=== PATIENT | female | born 1945 | race Caucasian/White ===

== ENCOUNTER → 2018-06-30 | Outpatient (CLI) | payer BC, MEDICARE | LOC: MC.RAD 10:49 | DX: Z12.31 Encounter for screening mammogram for malignant neoplasm of breast (principal) ==

== ENCOUNTER → 2020-08-10 | Outpatient (CLI) | payer MEDICARE, BC | LOC: MC.RAD 13:45 | DX: Z12.31 Encounter for screening mammogram for malignant neoplasm of breast (principal); N64.89 Other specified disorders of breast ==

== ENCOUNTER → 2020-08-17 | Outpatient (CLI) | payer MEDICARE, BC | LOC: MC.RAD 13:00 | DX: R92.1 Mammographic calcification found on diagnostic imaging of breast (principal); N64.89 Other specified disorders of breast ==

== ENCOUNTER 2021-09-26 07:55 | Day surgery (SDC) | payer MEDICARE, BC ==
[~2021-09-26] VITALS: Ht 160 cm; Wt 114.9 kg
[2021-09-26] MEDS ORDERED: COZAAR 50MG50 MG/TAB PO (08:18)
[2021-09-26] MEDS ORDERED: MEVACOR10 MG PO (08:18)
[2021-09-26] MEDS ORDERED: ZOLOFT 25MG25 MG PO (08:19)
[2021-09-26] MEDS ORDERED: WOMEN'S DAILY1 TAB PO (08:19)
[2021-09-26 08:29] VITALS: BP 146/74; PULSE 76; TEMP 97.4
[2021-09-26 09:55] VITALS: BP 99/61; PULSE 70; TEMP 97.7
--- NOTE | 2021-09-26 09:55 | NUR ---
PATIENT TRANSPORTED PER CART FROM GI SUITE TO BAY 2 ACCOMPANIED BY ENDO RN. PATIENT AMBULTED FROM CART TO CHAIR WITH 2 ASSIST AND STEADY GAIT. MONITORS APPLIED. VSS ON ROOM AIR. WARM BLANKETS PROVIDED. IN ROOM AND PATIENT SPEAKS WITH . VERBAL REPORT RECEIVED.
[2021-09-26 10:00] VITALS: BP 99/55; PULSE 67
--- NOTE | 2021-09-26 10:00 | NUR ---
VSS ON ROOM AIR. PATIENT TALKING WITH PATIENT GIVEN MUFFIN AND COFFEE. DR LEDBETTER SPEAKS WITH PATIENT AND .
[2021-09-26 10:15] VITALS: BP 116/80; PULSE 71
--- NOTE | 2021-09-26 10:15 | NUR ---
VSS ON ROOM AIR. PATIENT EATS MUFFIN AND DRINKS COFFEE. DENIES NAUSEA AND DISCOMFORT. PATIENT STATES SHE IS WAKING UP.
[2021-09-26 10:30] VITALS: BP 120/54; PULSE 70
--- NOTE | 2021-09-26 10:30 | NUR ---
VSS ON ROOM AIR. PATIENT TALKS WITH . DENIES NAUSESA AND DISCOMFORT. 1033 IV DC'D WITH CATHETER TIP INTACT. PRESSURE AND BANDAGE APPLIED. 1036 DISCHARGE INSTRUCTIONS GIVEN VERBAL AND DISCHARGE PACKET PROVIDED. PATIENT AND VOICED UNDERSTANDING. PATIENT CHANGES INTO STREET CLOTHES.
--- NOTE | 2021-09-26 10:52 | NUR ---
PATEINT USES BATHROOM WITHOUT PROBLEMS. PATEINT DISCHARGED PER WHEEL CHAIR ACCOMPANIED BY AMB RN TO PRIVATE VECHILE DRIVEN BY .
== END 2021-09-26 10:52 | disposition home or self-care (01) ==
LOC: SDCO 07:55
DX: Z12.11 Encounter for screening for malignant neoplasm of colon (principal); D12.3 Benign neoplasm of transverse colon; K62.89 Other specified diseases of anus and rectum
CPT/HCPCS: J2704; J7030

== ENCOUNTER 2023-07-25 09:03 | Day surgery (SDC) | payer MEDICARE, BC ==
[~2023-07-25] VITALS: Ht 160 cm; Wt 113.3 kg
[~2023-07-25 09:03] MED LIST: COZAAR 50MG50 MG/TAB PO; MEVACOR10 MG PO; WOMEN'S DAILY1 TAB PO; ZOLOFT 25MG25 MG PO
[2023-07-25 09:34] VITALS: BP 186/79; PULSE 77; TEMP 97.1
[2023-07-25] MEDS ORDERED: SYNTHROID0.05 MG/TA PO (10:00)
[2023-07-25] MEDS ORDERED: PRINIVIL20 MG PO (10:02)
[2023-07-25 11:40] VITALS: BP 141/100; PULSE 66; TEMP 97.5
[2023-07-25 11:55] VITALS: BP 144/85; PULSE 67
--- NOTE | 2023-07-25 12:55 | NUR ---
1140-PATIENT ARRIVED VIA CART TO [facility]. PATIENT DROWSY ON ARRIVAL. VITAL SIGNS TAKEN, VSS. OXYGEN SATURATION NOTED TO BE 89-91% ON RA. PATIENT DENIES SOB, NAUSEA, OR PAIN. PATIENT'S SPOUSE AT BEDSIDE. REPORT OBTAINED FROM JJ RODRIGUEZ. 1155-VSS. PATIENT TOLERATING PO INTAKE WITHOUT COMPLAINT. DR. LEDBETTER AT BEDSIDE TO DISCUSS PROCEDURE, QUESTIONS INVITED. 1202-DISCHARGE INSTRUCTIONS REVIEWED WITH PT AND SPOUSE, QUESTIONS INVITED. 1208-IV CATHETER DISCONTINUED, CATHETER TIP INTACT. PRESSURE HELD AND BANDAGE APPLIED. PATIENT CHANGED CLOTHING WITH SPOUSE ASSIST. 1224-PATIENT DISCHARGED HOME TO [facility] VIA WHEELCHAIR, ACCOMPANIED BY SPOUSE. ALL BELONGINGS AND DC PAPERWORK SENT WITH PATIENT.
== END 2023-07-25 12:24 | disposition home or self-care (01) ==
LOC: SDCO 09:03
DX: K25.9 Gastric ulcer, unspecified as acute or chronic, without hemorrhage or perforation (principal); K44.9 Diaphragmatic hernia without obstruction or gangrene; D50.9 Iron deficiency anemia, unspecified; E66.9 Obesity, unspecified
CPT/HCPCS: J2704; J7120

== ENCOUNTER 2023-07-28 10:53 | Inpatient (IN) | payer MEDICARE, BC ==
[~2023-07-28] VITALS: Ht 160.1 cm; Wt 113.0 kg
[~2023-07-28 10:53] MED LIST changes: +PRINIVIL20 MG PO; +SYNTHROID0.05 MG/TA PO
[2023-07-28 11:04] LABS: BASO % 0.5 % (0.0-2.0); EOS # 0.1 K/mm3 (0.0-0.7); GRAN # 5.6 K/mm3 (1.4-6.5); LYMPH # 0.9 K/mm3 (1.2-3.4); LYMPH % 11.6 % (20.0-51.0); MEAN CELL VOLUME 83 fl (80.0-100.0); MEAN CORPUSCULAR HGB CONC 29 g/dl (33.0-37.0); MEAN PLATELET VOLUME 9.4 fl (7.4-10.4); MONO # 0.7 K/mm3 (0.1-0.6); MONO % 9.5 % (1.7-9.3); PLATELET COUNT 397 K/mm3 (130-400); RED BLOOD COUNT 3.98 M/mm3 (4.10-5.30); REDCELL DISTRIBUTION WIDTH-CV 18.5 % (11.5-14.5)
[2023-07-28 11:05] LABS: HEMATOCRIT 33.2 % (37.0-47.0); HEMOGLOBIN 9.7 g/dl (12.5-16.0); MEAN CORPUSCULAR HEMOGLOBIN 24 pg (27-31)
[2023-07-28 11:21] LABS: ALBUMIN 3.5 gm/dL (3.4-4.8); BILIRUBIN,TOTAL 0.4 mg/dL (0.2-1.2); CALCIUM 9.2 mg/dL (8.4-10.2); CREATININE, serum 0.83 mg/dL (0.57-1.11); TOTAL PROTEIN 6.7 gm/dL (6.2-8.1)
[2023-07-28 11:22] LABS: PROTHROMBIN TIME 11.3 SECONDS (9.7-12.8)
[2023-07-28 11:41] LABS: TSH w REFLEX 2.764 uIU/mL (0.350-4.940)
[2023-07-28 11:42] LABS: TROPONIN-I 0.293 ng/mL (0.00-0.033)
[2023-07-28] MEDS ORDERED: TRELEGY ELLIPT1 EACH IH (12:50)
[2023-07-28] MEDS ORDERED: ZOLOFT 50MG50 MG PO (12:51)
[2023-07-28] MEDS ORDERED: ASPIRIN 81M81 MG/TA2 PO (12:53)
[2023-07-28 14:11] LABS: HEMATOCRIT 30.8 % (37.0-47.0); HEMOGLOBIN 9.3 g/dl (12.5-16.0); MEAN CELL VOLUME 82 fl (80.0-100.0); MEAN CORPUSCULAR HEMOGLOBIN 25 pg (27-31); MEAN CORPUSCULAR HGB CONC 30 g/dl (33.0-37.0); MEAN PLATELET VOLUME 9.4 fl (7.4-10.4); PLATELET COUNT 364 K/mm3 (130-400); RED BLOOD COUNT 3.78 M/mm3 (4.10-5.30); REDCELL DISTRIBUTION WIDTH-CV 18.6 % (11.5-14.5)
[2023-07-28 14:41] LABS: PARTIAL THROMBOPLASTIN TIME 27.8 SECONDS (26.0-37.0)
[2023-07-28 14:47] VITALS: BP 180/93; PULSE 82
[2023-07-28 16:09] VITALS: BP 162/82; PULSE 86; TEMP 97.9
[2023-07-28 17:04] VITALS: BP_SYST 162
--- NOTE | 2023-07-28 19:15 | NUR ---
DURING UNIT SHIFT CHANGE, PCT CALLED OUT ASKING FOR ASSISTANCE. PATIENT HAD A SYNCOPE EPISODE COMING BACK FROM BATHROOM. PATIENT DID NOT LOSE CONSCIOUSNESS AND WAS ASSISTED WITH 2-3 ASSIST BACK TO BED. VSS. PATIENT WAS RECENTLYL TAKEN OFF TELE ON DAY SHIFT. RN CALLED HOSPITALIST AND PATIENT PLACED BACK ON TELE, SEE ORDERS.
[2023-07-28 19:26] VITALS: BP 160/62; PULSE 102; TEMP 98.2
[2023-07-28 21:00] VITALS: BP_SYST 160
--- NOTE | 2023-07-28 22:00 | NUR ---
SECOND MACARONI PRESS OPERATOR ALSO HAVING DIFFICULTY GETTING BLOOD DRAWN FOR 1914 HEPXA. ANOTHER MACARONI PRESS OPERATOR TO COME TRY
--- NOTE | 2023-07-28 22:45 | NUR ---
AFTER THIRD AUDIOVISUAL LIBRARIAN, 1914 HEPXA WAS FINALLY OBTAINED AND WAS REPORTED CRITICAL HIGH 1.73. HEPARIN GTT NOW OFFJ PER PROTOCOL, SEE NEW ORDERS.
[2023-07-29] VITALS (14 sets, daily range): BP systolic 145–160; BP diastolic 72–85; PULSE 80–86; TEMP 97.5–98.3
--- NOTE | 2023-07-29 08:27 | NUR ---
LAB CALLED CRITICAL HEP XA OF 1.37. HEP STOPPED AT THIS TIME FOR TWO HOURS AND NEW LAB DRAW ORDERED. WILL CONTINUE TO MONITOR.
--- NOTE | 2023-07-29 09:44 | NUR ---
PT RESTING IN BED WITH NO PAIN AT THIS TIME. PT STATES SHE IS FELEING SAD AND DEPRESSED, FAMILY WILL BE AT BEDSIDE TODAY. UNSTADY GAIT WITH WALKER ON AMBULATION TO BATHROOM. WILL CONTINUE TO MONITOR.
--- NOTE | 2023-07-29 16:02 | NUR ---
SMIELY was notified patient has been crawling up her stairs for over a year and she is significantly weaker now. SW was notified by PT that patient would benefit from rehab prior to returning home. SMILEY met with patient and her family, Carolyn (daughter) and Sebastien () to discuss discharge planning. Patient lives in [place] with her . Patient's PCP is Dr. Heredia and preferred pharmacy is [facility]. Sebastien - Home [phone], and Carolyn [phone]. Patient did not have a DPOA-HC but wished to complete one during her hospital stay. SW assisted patient with completing the DPOA-HC, patient appointed her as primary and her daughter as secondary. SMILEY and RN witnessed patient's signature for the DPOA-HC. SW made 5 copies, placed one copy in her chart and provided the original and 4 copies to the patient. Patient has a cane at home but it is recommended patient uses a walker. Patient confirmed she has been crawling up her stairs and her family is concerned about her returning home without rehab. SMILEY provided Medicare.gov options for SNF in the [facility] as well as home health services. SMILEY expressed patient would be private pay due to her status being observation in the hospital and not meeting inpatient criteria. SMILEY was notified patient would like a referral sent to [facility]. SMILEY faxed referral and was informed [facility] private pay is $407 per day, SMILEY provided this information to the family. At this time, patient and family only wanted a referral sent to [facility] and they were also considering the patient living with the daughter until she is able to return home.
--- NOTE | 2023-07-29 19:50 | NUR ---
PT A&O X4 LAYING IN BED. VSS ON ROOM AIR. PT IS DENYING PAIN OR N/V. STATES SHE HAS SOB ON EXERTION. HEP GTT INFUSING TO RIGHT AC @ 15.5 MLS/HR. PT DENYING FURTHER NEEDS. FALL PRECAUTIONS IN PLACE &CALL LIGHT IN REACH.
--- NOTE | 2023-07-29 20:45 | NUR ---
HEP XA 0.85. HEP GTT STOPPED PER PROTOCOL FOR 1 HR & WILL RESUME AT 2145 @ 13.5MLS/HR. NEXT HEP XA WILL BE 07/30 @ 8157.
[2023-07-30] VITALS (11 sets, daily range): BP systolic 144–186; BP diastolic 54–84; PULSE 71–94; TEMP 97.5–98.3
[2023-07-30 03:56] LABS: MEAN CELL VOLUME 83 fl (80.0-100.0); MEAN CORPUSCULAR HGB CONC 30 g/dl (33.0-37.0); MEAN PLATELET VOLUME 9.4 fl (7.4-10.4); PLATELET COUNT 362 K/mm3 (130-400); RED BLOOD COUNT 3.71 M/mm3 (4.10-5.30)
[2023-07-30 03:57] LABS: HEMATOCRIT 30.6 % (37.0-47.0); HEMOGLOBIN 9.1 g/dl (12.5-16.0); MEAN CORPUSCULAR HEMOGLOBIN 25 pg (27-31)
--- NOTE | 2023-07-30 04:35 | NUR ---
HEP XA 1.09. HEP GTT STOPPED PER PROTOCOL. WILL REDRAW HEP XA & PTT AT 0635.
[2023-07-30] MEDS ORDERED: CARAFATE 1GM1 G PO ×2 (07:39)
[2023-07-30] MEDS ORDERED: ELIQUIS 5MG PO ×4 (07:40→09:14)
[2023-07-30] MEDS ORDERED: PROTONIX 40MG T40 MG PO ×2 (07:40)
[2023-07-30 07:54] LABS: PARTIAL THROMBOPLASTIN TIME 86.1 SECONDS (26.0-37.0)
--- NOTE | 2023-07-30 08:00 | NUR ---
PATIENT IS A&O AND RESTING UP IN BED. NO COMPLAINTS. VSS ON TELE. HEAD TO TOE ASSESSMENT COMPLETE. AM MEDS GIVEN. HEPARIN GTT DC'D AND PATIENT STARTED ON ELIQUIS, SEE ORDERS. RIGHT AC IV TO INT. NO OTHER NEEDS AT THIS TIME. CALL LIGHT IN REACH. BED ALARM ON.
--- NOTE | 2023-07-30 10:50 | NUR ---
PATIENT GOING DOWN FOR MRI
--- NOTE | 2023-07-30 16:55 | NUR ---
mental health worker was notified [facility] private pay is $302 for semi private room and $377 for a private deluxe room. SW was notified [facility] and [facility] are still reviewing patient. SMILEY was notified that patient was upgraded to inpatient today. SMILEY was notified patient's family would like to speak with her. SW provided updates that patient was upgraded to inpatient. SW provided the private pay cost for all three facilities. Patient's expressed if she were to go private pay he would prefer [facility] but if she meets Medicare requirements and is accepted there, their preference would be [facility]. Discharge Plan: SNF
--- NOTE | 2023-07-30 20:00 | NUR ---
PT ASSISTED TO BATHROOM, DOES HYGIENE CARES AND BACK TO BED. IS ALERT, ORIENTED X3. HAS INT TO RAC, FLUSHES WELL. NO SCHEDULED HS MEDS. BED ALARM ON FOR SAFETY.
[2023-07-31] VITALS (12 sets, daily range): BP systolic 127–173; BP diastolic 68–86; PULSE 66–78; TEMP 97.4–98.1
--- NOTE | 2023-07-31 04:22 | NUR ---
ASSISTED TO BATHROOM WITH ONE ASSIST/GAIT BELT/WALKER, DOES WELL. VOIDS AND BACK TO BED.
--- NOTE | 2023-07-31 08:00 | NUR ---
PATIENT IS A&O AND RESTING UP IN BED. NO COMPLAINTS. VSS ON TELE. HEAD TO TOE ASSESSMENT COMPLETE. AM MEDS GIVEN. RIGHT AC IV TO INT. NO OTHER NEEDS AT THIS TIME. CALL LIGHT IN REACH. BED ALARM ON.
--- NOTE | 2023-07-31 16:54 | NUR ---
face worker was notified by Dr. Marcano if medically stable, patient would be ready for discharge on Friday. Dr. Marcano expressed they are completing additional tests tomorrow. [facility] of this information. Both facilities are able to accept. Smiley contacted several [facility] facilities for information on a stair chair lift. [facility] is able to order and install a chair lift. SMILEY met with patient and updated her on the above information. [facility] SMILEY contacted patient's daughter, Carolyn, and also updated her on the above information. Carolyn expressed they would reach out to [facility] to order and have the chair lift installed while the patient is in SNF. Discharge Plan: [facility]- [facility]
--- NOTE | 2023-07-31 20:38 | NUR ---
PT IN BED, HS MEDS GIVEN. PT AWARE SHE WILL BE NPO FOR STRESS TEST TOMORROW. IS ALERT AND ORIENTED X3. HAS INT TO RAC, FLUSHES WELL. VOIDING WITHOUT PROBLEM, CALLS FOR ASSIST WITH ACTIVITY. DENIES DIZZINESS OR SOA AT THIS TIME.
[2023-08-01] VITALS (18 sets, daily range): BP systolic 132–184; BP diastolic 69–83; PULSE 68–88; TEMP 97.5–98.3
--- NOTE | 2023-08-01 06:00 | NUR ---
PT HAS BEEN NPO SINCE MIDNIGHT. RESTING WELL IN BED. LEXISCAN TODAY.
--- NOTE | 2023-08-01 06:45 | NUR ---
awake resting in bed, bedside shift report received from JJ Bacon
[2023-08-01 06:56] LABS: MEAN CELL VOLUME 83 fl (80.0-100.0); MEAN CORPUSCULAR HGB CONC 30 g/dl (33.0-37.0); MEAN PLATELET VOLUME 9.5 fl (7.4-10.4); PLATELET COUNT 372 K/mm3 (130-400); RED BLOOD COUNT 3.86 M/mm3 (4.10-5.30); REDCELL DISTRIBUTION WIDTH-CV 18.8 % (11.5-14.5)
[2023-08-01 06:58] LABS: HEMATOCRIT 31.9 % (37.0-47.0); HEMOGLOBIN 9.5 g/dl (12.5-16.0); MEAN CORPUSCULAR HEMOGLOBIN 25 pg (27-31)
--- NOTE | 2023-08-01 08:00 | NUR ---
nucler med tech in and injected for senait scan, then full assessment completed, see interventions for further info, PROFESSOR OF BIOLOGY in and assisted her up and into the shower before lexiscan
--- NOTE | 2023-08-01 08:38 | NUR ---
nuclear med tech here and patient in WC to mobile lab technician for anthonyan
--- NOTE | 2023-08-01 09:22 | NUR ---
Initial visit; Patient thanked Electrician Apprentice for stopping and introducing herself. Electrician Apprentice offered God's blessings and wished her well.
--- NOTE | 2023-08-01 10:55 | NUR ---
I am notified by dietary that patient is trying to order something to eat, it was at this time i found out patient had returned from lexiscan, patient states she has been back in room about 20-30 minutes, she is resting in chair after working also with physical therapy, explained to her would need to wait until after Dr reads the lexiscan to ensure she doesn't need any other procedures, verbalizes understanding, denies needs
--- NOTE | 2023-08-01 11:50 | NUR ---
remains resting in recliner and denies pain or needs
--- NOTE | 2023-08-01 13:00 | NUR ---
physical therapy in and patient ambulated in vargas, then back to room and into recliner
--- NOTE | 2023-08-01 13:25 | NUR ---
KACY Barnhart called this nurse and states lexiscan is normal and ok to eat, patient notified and lunch ordered
[2023-08-01 13:30] LABS: CALCIUM 8.8 mg/dL (8.4-10.2); CREATININE, serum 1.01 mg/dL (0.57-1.11); POTASSIUM 4.1 mmol/L (3.5-4.5)
--- NOTE | 2023-08-01 14:07 | NUR ---
court worker faxed clinical updates to [facility]. [facility]
--- NOTE | 2023-08-01 16:13 | NUR ---
resting in chair visiting with family, denies needs
--- NOTE | 2023-08-01 16:39 | NUR ---
Continues to visit with family, takes meds without difficulty, denies needs
--- NOTE | 2023-08-01 18:52 | NUR ---
bedside shift report given to JJ Zamarripa
[2023-08-02 00:30] VITALS: BP_SYST 145
--- NOTE | 2023-08-02 01:13 | NUR ---
NURSING SHIFT ASSESSMENT COMPLETED. THE PATIENT WAS ALERT AND ORIENTED AND APPROPRIATE. THE PATIENT DENIED PAIN OR DISCOMFORT. THE PATIENT AMBULATED WITH A STEADY GAIT TO THE BATHROOM WITH A WALKER. THE PLAN OF CARE AND EVENING MEDICATIONS REVIEWED. THE PATIENT DENIED OTHER NEEDS AT THIS TIME. BED ALARM ON, BED IN LOW POSITION, CALL LIGHT WITHIN REACH.
[2023-08-02 04:20] VITALS: BP 162/83; PULSE 76; TEMP 97.9
[2023-08-02 04:30] VITALS: BP_SYST 158
[2023-08-02 05:03] VITALS: BP 148/82
[2023-08-02 07:17] VITALS: BP 158/67; PULSE 78; TEMP 97.8
--- NOTE | 2023-08-02 07:40 | NUR ---
PT LAYING IN BED, ALERT AND ORIENTEDX4. NO COMPLAINTS OF PAIN AT THIS TIME. ASSESSED. CALL LIGHT WITHIN REACH.
[2023-08-02 08:24] VITALS: BP_SYST 158
[2023-08-02] MEDS ORDERED: COZAAR 50MG50 MG/TAB PO ×2 (09:46)
--- NOTE | 2023-08-02 11:12 | NUR ---
PT HAS DISCHARGE ORDERS TO GO TO [facility]. TOOK OUT PT IV. CALLED REPORT TO [facility] NURSE. [facility] TRANSPORT CAME TO TILE HELPER PT. GAVE DISCHARGE PAPERWORK TO TRANSPORTER.
[2023-08-02] MEDS ORDERED: CARAFATE 1GM1 G PO (11:54)
[2023-08-02] MEDS ORDERED: ELIQUIS 5MG PO (11:54)
[2023-08-02] MEDS ORDERED: PROTONIX 40MG T40 MG PO (11:54)
--- NOTE | 2023-08-02 12:16 | NUR ---
SW met with patient, completed IM form. Patient is discharging to [facility], transportation was scheduled for picker packer around 10/11AM today. Nurse was updated.
== END 2023-08-02 11:14 | DRG 175 ==
LOC: COL.ER 10:53 → SURG 12:56
PROVIDERS: Emergency Medicine; Internal Medicine; ADMIT Internal Medicine
DX: I26.99 Other pulmonary embolism without acute cor pulmonale (principal); I21.A1 Myocardial infarction type 2; R55 Syncope and collapse; D64.9 Anemia, unspecified; I10 Essential (primary) hypertension; J44.9 Chronic obstructive pulmonary disease, unspecified; E78.5 Hyperlipidemia, unspecified; E03.9 Hypothyroidism, unspecified
CPT/HCPCS: A9500-JZ; A9575; G0378; J1644; J2785; J7030; Q9967

== ENCOUNTER 2023-08-09 17:23 | Emergency (ER) | payer MEDICARE, BC ==
[~2023-08-09] VITALS: Ht 160 cm; Wt 113.6 kg
[~2023-08-09 17:23] MED LIST changes: +ASPIRIN 81M81 MG/TA2 PO; +CARAFATE 1GM1 G PO; +ELIQUIS 5MG PO; +PROTONIX 40MG T40 MG PO; +TRELEGY ELLIPT1 EACH IH; +ZOLOFT 50MG50 MG PO
[2023-08-09 17:31] VITALS: TEMP 98.9
[2023-08-09 18:21] LABS: BASO % 0.7 % (0.0-2.0); EOS # 0.2 K/mm3 (0.0-0.7); GRAN # 3.7 K/mm3 (1.4-6.5); GRAN % 66.7 % (42.2-75.2); LYMPH % 18.1 % (20.0-51.0); MEAN CELL VOLUME 83 fl (80.0-100.0); MEAN CORPUSCULAR HGB CONC 29 g/dl (33.0-37.0); MEAN PLATELET VOLUME 10.4 fl (7.4-10.4); MONO # 0.6 K/mm3 (0.1-0.6); MONO % 11.1 % (1.7-9.3); PLATELET COUNT 323 K/mm3 (130-400); RED BLOOD COUNT 3.53 M/mm3 (4.10-5.30); REDCELL DISTRIBUTION WIDTH-CV 18.8 % (11.5-14.5)
[2023-08-09 18:22] LABS: HEMATOCRIT 29.4 % (37.0-47.0); HEMOGLOBIN 8.6 g/dl (12.5-16.0); MEAN CORPUSCULAR HEMOGLOBIN 24 pg (27-31)
[2023-08-09 18:38] LABS: ALBUMIN 3.3 gm/dL (3.4-4.8); BILIRUBIN,TOTAL 0.2 mg/dL (0.2-1.2); CALCIUM 9.1 mg/dL (8.4-10.2); CREATININE, serum 1.2 mg/dL (0.57-1.11); POTASSIUM 4.5 mmol/L (3.5-4.5); TOTAL PROTEIN 6.8 gm/dL (6.2-8.1)
[2023-08-09 19:40] VITALS: BP 180/76; PULSE 70
== END 2023-08-09 19:48 | disposition home or self-care (01) ==
LOC: COL.ER 17:23
PROVIDERS: Personal Emergency Response Attendant
DX: I10 Essential (primary) hypertension (principal); R79.89 Other specified abnormal findings of blood chemistry

== ENCOUNTER → 2023-10-01 | Outpatient (CLI) | payer MEDICARE, BC | LOC: COL.RAD 13:50 | DX: K44.9 Diaphragmatic hernia without obstruction or gangrene (principal); K22.89 Other specified disease of esophagus ==

== ENCOUNTER → 2024-02-16 | Outpatient (CLI) | payer MEDICARE, BC | LOC: COL.VAS 09:45 | DX: I08.3 Combined rheumatic disorders of mitral, aortic and tricuspid valves (principal); I27.20 Pulmonary hypertension, unspecified; R91.8 Other nonspecific abnormal finding of lung field ==

== ENCOUNTER → 2024-03-02 | Outpatient (CLI) | payer MEDICARE, BC ==
[~2024-03-02] MED LIST changes: +Albuterol 0.083% Neb Soln 2.5 MG/3 ML UD IH ONE; +Methacholine Vial A (Clear Label Base-Cntrl) IH ONE; +Methacholine Vial B (Red Label) 0.0625 MG/ML 3 ML VIAL.NEB IH ONE; +Methacholine Vial C (Orange Label) 0.25 MG/ML 3 ML VIAL.NEB IH ONE; +Methacholine Vial D (Yellow Label) 1 MG/ML 3 ML VIAL.NEB IH ONE; +Methacholine Vial E (Green Label) 4 MG/ML 3 ML VIAL.NEB IH ONE; +Methacholine Vial F (Blue Label) 16 MG/ML 3 ML VIAL.NEB IH ONE
== END ==
LOC: COL.CARD 12:09
DX: R06.02 Shortness of breath (principal); R93.89 Abnormal findings on diagnostic imaging of other specified body structures
CPT/HCPCS: J7674